=== PATIENT | male | born 1985 | race Two or more races ===

== ENCOUNTER 2019-09-02 08:04 | Emergency (ER) | payer BC, OTHER ==
[~2019-09-02] VITALS: Ht 165.1 cm; Wt 107.0 kg
[2019-09-02] MEDS ORDERED: METHOCARBAMOL 750 MG TABLET PO ONE (09:00)
[2019-09-02] MEDS ORDERED: IBUPROFEN 800 MG TABLET PO ONE (09:00)
[2019-09-02] MEDS ORDERED: METHOCARBAMOL 750 MG TABLET ONE (09:07)
[2019-09-02] MEDS ORDERED: IBUPROFEN 800 MG TABLET ONE (09:07)
--- NOTE | 2019-09-02 09:09 | NUR ---
C/O LOWER BACK PAIN, MIDLINE; STARTED ABOUT 2 WEEKS. DENIES NUMBNESS/TINGLING TO LE'S BILAT. PT WAS PUTTING A BOX ON A SHELF. TYLENOL AT 0200.
--- NOTE | 2019-09-02 09:15 | NUR ---
PT MEDICATED PER EMAR
[2019-09-02 09:16] VITALS: BP 116/72
[2019-09-02 09:27] LABS: MICROSCOPIC NOT IND
[2019-09-02 09:47] LABS: CULTURE INDICATED? NO
== END 2019-09-02 10:38 | disposition home or self-care (01) ==
LOC: ED 08:42
DX: S30.0XXA Contusion of lower back and pelvis, initial encounter (principal); W20.8XXA Other cause of strike by thrown, projected or falling object, initial encounter; Y93.89 Activity, other specified; Y92.89 Other specified places as the place of occurrence of the external cause; Y99.0 Civilian activity done for income or pay
CPT/HCPCS: 72110; 81003; 99284

== ENCOUNTER 2019-09-19 19:25 | Emergency (ER) | payer BC ==
[~2019-09-19] VITALS: Ht 167.6 cm; Wt 105.4 kg
[2019-09-19 19:37] VITALS: BP 136/66
--- NOTE | 2019-09-19 19:44 | NUR ---
PT WAS AT WORK AND WAS HIT BY A PUSH CART TWO WEEKS AGO. REPORTS A BOX FELL ON HIM. INCIDENT WAS 2 WEEKS AGO. WAS SEEN HERE AND HAD XRAYS. REPORTS PAIN PERSISTS. REPORTS MID TO LOWER BACK PAIN. NO ISSUES AMBULATING. REPORTS WAKES FROM SLEEP. NO LOSS OF BOWEL
== END 2019-09-19 20:07 | disposition home or self-care (01) ==
LOC: ED 20:00
DX: G89.11 Acute pain due to trauma (principal); M54.5 Low back pain
CPT/HCPCS: 99283

== ENCOUNTER 2019-10-15 11:33 | Inpatient (IN) | payer BC ==
[~2019-10-15] VITALS: Ht 167.6 cm; Wt 101.3 kg
[2019-10-15] MEDS ORDERED: DIAZEPAM 5 MG/ML, 2ML ONE (12:21)
[2019-10-15] MEDS ORDERED: ONDANSETRON 2MG/ML, 2ML ONE (12:21)
[2019-10-15] MEDS ORDERED: MORPHINE SULFATE 4 MG/ML, 1ML ONE ×2 (12:22→15:51)
[2019-10-15] MEDS ORDERED: SODIUM CHLORIDE FLUSH 10ML SYR IVF ONE ×2 (12:30→14:30)
[2019-10-15] MEDS ORDERED: DIAZEPAM 5 MG/ML, 2ML IVPush ONE (12:30)
[2019-10-15] MEDS ORDERED: ONDANSETRON 2MG/ML, 2ML IVPush ONE (12:30)
[2019-10-15] MEDS: MORPHINE SULFATE 4 MG/ML, 1ML IVPush PRN ×2 (12:33→15:52)
--- NOTE | 2019-10-15 15:07 | NUR ---
TASK RN: PT TO MRI VIA [facility]
[2019-10-15 15:08] LABS: HCT (SEDRATE) 41.2 % (39.2-51.8)
[2019-10-15 15:13] LABS: BASOPHILS # (AUTO) 0.02 x10^3/uL (0-0.1); BASOPHILS % (AUTO) 0 % (0-1); EOSINOPHILS # (AUTO) 0.17 x10^3/uL (0-0.4); EOSINOPHILS % (AUTO) 2 % (1-7); LYMPHOCYTES # (AUTO) 1.67 x10^3/uL (1-3.4); LYMPHOCYTES % (AUTO) 20 % (22-44); MD NO; MEAN CORPUSCULAR HEMOGLOBIN 28.8 pg (27.5-34.5); MEAN CORPUSCULAR HGB CONC 32.7 g/dL (33.2-36.2); MEAN CORPUSCULAR VOLUME 88.3 fL (81-97); MEAN PLATELET VOLUME 7.9 fL (7.4-10.4); MONOCYTES # (AUTO) 0.42 x10^3/uL (0.2-0.8); MONOCYTES % (AUTO) 5 % (2-9); NEUTROPHILS # (AUTO) 5.99 x10^3/uL (1.8-6.8); NEUTROPHILS % (AUTO) 72 % (42-75); PLATELET COUNT 302 x10^3/uL (130-400); RED BLOOD COUNT 4.75 x10^6/uL (4.38-5.82); RED CELL DISTRIBUTION WIDTH 13.3 % (9.4-14.8)
[2019-10-15 15:18] LABS: ALBUMIN 3.4 g/dL (3.4-5.0); ANION GAP 7 mmol/L (5-15); CHLORIDE 106 mmol/L (98-107)
[2019-10-15] MEDS ORDERED: GADOTERATE 10 MMOL/20 ML SYR ONE (15:25)
[2019-10-15 15:26] LABS: ALANINE AMINOTRANSFERASE 18 U/L (12-78); ALKALINE PHOSPHATASE 68 U/L (45-117); BILIRUBIN,TOTAL 0.9 mg/dL (0.2-1.0); CREATININE 0.73 mg/dL (0.7-1.3); TOTAL PROTEIN 7.7 g/dL (6.4-8.2)
[2019-10-15 15:39] LABS: MICROSCOPIC NOT IND
[2019-10-15] MEDS ORDERED: CEFTRIAXONE PMX 1GM/50ML 50 ML ONE (15:52)
[2019-10-15] MEDS ORDERED: VANCOMYCIN PER PHARMACY MC ONE (16:00)
[2019-10-15] MEDS ORDERED: CEFTRIAXONE PMX 1GM/50ML 50 ML IVPB ONE (16:00)
[2019-10-15] MEDS ORDERED: VANCOMYCIN 2,000 MG in SODIUM CHLORIDE 0.9% 500 ML IV ONE (16:00)
[2019-10-15 16:04] LABS: AMPHETAMINE SCREEN, URINE Negative (Negative); BARBITURATE SCREEN, URINE Negative (Negative); BENZODIAZEPINE SCREEN, URINE Positive (Negative); CANNABINOID SCREEN, URINE Negative (Negative); COCAINE SCREEN, URINE Positive (Negative); METHADONE SCREEN, URINE Negative (Negative); OPIATE SCREEN, URINE Positive (Negative)
[2019-10-15] MEDS ORDERED: ONDANSETRON 2MG/ML, 2ML IVPush PRN (17:00)
[2019-10-15] MEDS ORDERED: POLYETHYLENE GLYCOL 17 GM PACKET PO PRN (17:00)
[2019-10-15] MEDS ORDERED: ONDANSETRON ODT 4 MG PO PRN (17:00)
[2019-10-15] MEDS ORDERED: BISACODYL 10 MG SUPP PR PRN (17:00)
--- NOTE | 2019-10-15 17:00 | NUR ---
PT PROVIDED MEAL TRAY.
[2019-10-15] MEDS ORDERED: VANCOMYCIN PER PHARMACY MC PRN (17:30)
[2019-10-15 18:33] VITALS: BP 118/73
[2019-10-15] MEDS ORDERED: CEFTRIAXONE PMX 1GM/50ML 50 ML IV ONE (19:00)
[2019-10-15] MEDS ORDERED: PHARMACOKINETIC MONITORING MC PRN (19:00)
[2019-10-15] MEDS ORDERED: PHARMACOKINETIC CONSULTATION MC ONE (19:00)
[2019-10-15] MEDS: FAMOTIDINE 20 MG TABLET PO SCH ×2 (20:57→21:00)
[2019-10-15] MEDS: LACTATED RINGERS 1,000 ML IV SCH (22:07)
[2019-10-16] VITALS (8 sets, daily range): BP systolic 97–108; BP diastolic 55–71
[2019-10-16] MEDS: OXYcodone IR 5MG TABLET PO PRN ×3 (01:38→19:20)
[2019-10-16] MEDS: ACETAMINOPHEN 325 MG TABLET PO PRN ×2 (01:38→19:20)
[2019-10-16] MEDS: VANCOMYCIN 2,000 MG in SODIUM CHLORIDE 0.9% 500 ML IV SCH ×2 (03:04→15:10)
[2019-10-16] MEDS: METHOCARBAMOL 500 MG TABLET PO PRN (04:44)
[2019-10-16 05:24] LABS: BASOPHILS # (AUTO) 0.05 x10^3/uL (0-0.1); BASOPHILS % (AUTO) 1 % (0-1); EOSINOPHILS # (AUTO) 0.28 x10^3/uL (0-0.4); EOSINOPHILS % (AUTO) 3 % (1-7); LYMPHOCYTES # (AUTO) 1.94 x10^3/uL (1-3.4); LYMPHOCYTES % (AUTO) 20 % (22-44); MD NO; MEAN CORPUSCULAR HEMOGLOBIN 29.2 pg (27.5-34.5); MEAN CORPUSCULAR HGB CONC 33.3 g/dL (33.2-36.2); MEAN CORPUSCULAR VOLUME 87.7 fL (81-97); MEAN PLATELET VOLUME 7.8 fL (7.4-10.4); MONOCYTES # (AUTO) 0.55 x10^3/uL (0.2-0.8); MONOCYTES % (AUTO) 6 % (2-9); NEUTROPHILS # (AUTO) 6.99 x10^3/uL (1.8-6.8); NEUTROPHILS % (AUTO) 71 % (42-75); PLATELET COUNT 307 x10^3/uL (130-400); RED BLOOD COUNT 4.32 x10^6/uL (4.38-5.82); RED CELL DISTRIBUTION WIDTH 13.5 % (9.4-14.8)
[2019-10-16 05:33] LABS: ANION GAP 6 mmol/L (5-15); CALCIUM 8.7 mg/dL (8.5-10.1); CHLORIDE 106 mmol/L (98-107)
[2019-10-16 05:44] LABS: ALANINE AMINOTRANSFERASE 17 U/L (12-78); ALKALINE PHOSPHATASE 61 U/L (45-117); BILIRUBIN,TOTAL 0.7 mg/dL (0.2-1.0); CREATININE 0.74 mg/dL (0.7-1.3)
[2019-10-16] MEDS: SENNA/DOCUSATE TABLET PO SCH (09:05)
[2019-10-16] MEDS: FAMOTIDINE 20 MG TABLET PO SCH ×2 (09:05→20:05)
[2019-10-16] MEDS ORDERED: FENTANYL PF 100 MCG/2ML ONE (13:43)
[2019-10-16] MEDS ORDERED: MIDAZOLAM 1 MG/ML, 5ML ONE ×2 (13:43)
[2019-10-16] MEDS ORDERED: NALOXONE 1 MG/ML, 2ML ONE (13:44)
[2019-10-16] MEDS ORDERED: FLUMAZENIL 0.1 MG/1 ML, 5ML ONE (13:44)
[2019-10-16] MEDS: LACTATED RINGERS 1,000 ML IV SCH (15:12)
[2019-10-16] MEDS: CEFTRIAXONE PMX 2GM/50ML 50 ML IV SCH (20:05)
[2019-10-17] MEDS: ACETAMINOPHEN 325 MG TABLET PO PRN ×2 (00:32→06:45)
[2019-10-17] MEDS: OXYcodone IR 5MG TABLET PO PRN ×5 (00:32→22:15)
[2019-10-17 01:38] VITALS: BP 103/67
[2019-10-17] MEDS: VANCOMYCIN 2,000 MG in SODIUM CHLORIDE 0.9% 500 ML IV SCH ×2 (02:55→15:26)
[2019-10-17 07:12] VITALS: BP 124/74
[2019-10-17] MEDS: SENNA/DOCUSATE TABLET PO SCH (09:05)
[2019-10-17] MEDS: FAMOTIDINE 20 MG TABLET PO SCH ×2 (09:05→20:06)
[2019-10-17] MEDS: METHOCARBAMOL 500 MG TABLET PO PRN ×2 (10:51→20:14)
[2019-10-17 14:00] VITALS: BP 110/71
[2019-10-17] MEDS: CEFTRIAXONE PMX 2GM/50ML 50 ML IV SCH (20:06)
[2019-10-17 20:24] VITALS: BP 116/68
[2019-10-18] MEDS: TEMAZEPAM 15 MG CAPSULE PO PRN (00:16)
[2019-10-18 01:38] VITALS: BP 113/76
[2019-10-18] MEDS: OXYcodone IR 5MG TABLET PO PRN ×3 (03:04→23:12)
[2019-10-18] MEDS: GABAPENTIN 300 MG CAPSULE PO PRN ×2 (03:04→20:25)
[2019-10-18] MEDS: VANCOMYCIN 2,000 MG in SODIUM CHLORIDE 0.9% 500 ML IV SCH ×2 (03:05→15:49)
[2019-10-18] MEDS: morphine SULFATE 10 MG/ML, 1ML IVPush PRN ×4 (04:12→20:27)
[2019-10-18 05:45] LABS: BASOPHILS # (AUTO) 0.03 x10^3/uL (0-0.1); BASOPHILS % (AUTO) 1 % (0-1); EOSINOPHILS # (AUTO) 0.23 x10^3/uL (0-0.4); EOSINOPHILS % (AUTO) 3 % (1-7); LYMPHOCYTES # (AUTO) 1.69 x10^3/uL (1-3.4); LYMPHOCYTES % (AUTO) 24 % (22-44); MD NO; MEAN CORPUSCULAR HEMOGLOBIN 28.7 pg (27.5-34.5); MEAN CORPUSCULAR HGB CONC 32.9 g/dL (33.2-36.2); MEAN CORPUSCULAR VOLUME 87.1 fL (81-97); MONOCYTES # (AUTO) 0.45 x10^3/uL (0.2-0.8); MONOCYTES % (AUTO) 6 % (2-9); NEUTROPHILS # (AUTO) 4.72 x10^3/uL (1.8-6.8); NEUTROPHILS % (AUTO) 66 % (42-75); PLATELET COUNT 278 x10^3/uL (130-400); RED BLOOD COUNT 4.25 x10^6/uL (4.38-5.82); RED CELL DISTRIBUTION WIDTH 13.2 % (9.4-14.8)
[2019-10-18 05:46] LABS: ANION GAP 6 mmol/L (5-15); CALCIUM 8.6 mg/dL (8.5-10.1); CHLORIDE 105 mmol/L (98-107); CREATININE 0.83 mg/dL (0.7-1.3)
[2019-10-18 07:37] VITALS: BP 105/64
[2019-10-18] MEDS: FAMOTIDINE 20 MG TABLET PO SCH ×2 (08:17→20:24)
[2019-10-18] MEDS: SENNA/DOCUSATE TABLET PO SCH (08:28)
[2019-10-18] MEDS: ENOXAPARIN 40 MG/0.4 ML SQ SCH (12:20)
[2019-10-18 13:55] VITALS: BP 108/64
[2019-10-18] MEDS: METHOCARBAMOL 500 MG TABLET PO PRN (15:52)
[2019-10-18 19:50] VITALS: BP 115/73
[2019-10-18] MEDS: CEFTRIAXONE PMX 2GM/50ML 50 ML IV SCH (20:25)
[2019-10-19 00:24] VITALS: BP 111/77
[2019-10-19] MEDS: morphine SULFATE 10 MG/ML, 1ML IVPush PRN ×4 (00:42→13:16)
[2019-10-19] MEDS: TEMAZEPAM 15 MG CAPSULE PO PRN (00:42)
[2019-10-19] MEDS: VANCOMYCIN 2,000 MG in SODIUM CHLORIDE 0.9% 500 ML IV SCH (03:17)
[2019-10-19 07:20] VITALS: BP 114/72
[2019-10-19] MEDS: OXYcodone IR 5MG TABLET PO PRN ×2 (09:32→15:20)
[2019-10-19] MEDS: SENNA/DOCUSATE TABLET PO SCH (09:33)
[2019-10-19] MEDS: METHOCARBAMOL 500 MG TABLET PO PRN (09:33)
[2019-10-19] MEDS: FAMOTIDINE 20 MG TABLET PO SCH (09:33)
[2019-10-19] MEDS ORDERED: DAPTOMYCIN 600 MG in SODIUM CHLORIDE 0.9% 100 ML IVPB SCH (10:30)
[2019-10-19] MEDS ORDERED: ERTAPENEM 1 GM in SODIUM CHLORIDE 0.9% 50 ML IV SCH (11:00)
[2019-10-19] MEDS ORDERED: FAMO20TA7 PO (11:14)
[2019-10-19] MEDS ORDERED: METH500T7 PO (11:14)
[2019-10-19] MEDS ORDERED: ERTA1VIA IV (11:14)
[2019-10-19] MEDS ORDERED: GABA300C PO (11:14)
[2019-10-19] MEDS ORDERED: SENN-193 PO (11:14)
[2019-10-19] MEDS ORDERED: OXYC5TAB3 PO (11:14)
[2019-10-19] MEDS ORDERED: DAPT500V3 IV (11:14)
[2019-10-19] MEDS: ENOXAPARIN 40 MG/0.4 ML SQ SCH (11:30)
[2019-10-19 13:12] VITALS: BP 112/70
== END 2019-10-19 16:32 | disposition home or self-care (01) | DRG 539 ==
LOC: ED 13:13 → SUATTDRO 16:28 → EDIP 16:29 → 3N 18:15 → DCLOUNGE 10-19 16:11
PROVIDERS: ADMIT Internal Medicine; ATTEND Hospitalist
PROC: 02HV33Z Insertion of Infusion Device into Superior Vena Cava, Percutaneous Approach (ICD-10-PCS; principal; 2019-10-19)
PROC: B548ZZA Ultrasonography of Superior Vena Cava, Guidance (ICD-10-PCS; 2019-10-19)
DX: M46.26 Osteomyelitis of vertebra, lumbar region (principal); G06.2 Extradural and subdural abscess, unspecified; M46.46 Discitis, unspecified, lumbar region; D64.9 Anemia, unspecified; M48.061 Spinal stenosis, lumbar region without neurogenic claudication
CPT/HCPCS: 36415; 36573; 62267; 71045; 72148; 72149; 77012; 80048; 80053; 80202; 80307; 81003; 83605; 83735; 84100; 84443; 85025; 85651; 86140; 87040; 87070; 87075; 87102; 87205; 93306; 93356; 99156; 99157; 99285; G0378; J0696; J0878; J1335; J1650; J2250; J2405; J3010; J3360; J3370; A9575; C1751; J2270; J2310; J7040; J7120